=== PATIENT | male | born 1950 | race Caucasian/White ===

== ENCOUNTER 2016-10-12 11:06 | Inpatient (IN) | payer OTHER ==
[~2016-10-12] VITALS: Ht 177.8 cm; Wt 85.2 kg
[~2016-10-12 11:06] MED LIST: ALBUTEROL SULF8.5 GM IH; AMBIEN10 M1 PO; AMBIEN10 MG PO; ATROVENT H200 INHALA IH; AZITHROMYCIN250 MG PO; Aspirin E.C. PO; Bactrim,Septra DS 80 PO; CARTIA XT120 MG PO; CEFTIN500 MG PO; COUMADIN1 MG PO; EYE DROP TEARS15 ML BOTH EYES; FLEXERIL10 MG PO; FLOMAX0.4 M1 PO; FLOMAX0.4 MG PO; INDERAL10 MG PO; INDOMETHACIN50 MG PO; LOVENOX80 MG/0.8 SC; NO HOME MEDICATION; NOT TAKING MEDS; PRED FORTE100 DROP/5 RIGHT EYE; PREDNISONE10 MG PO; PREDNISONE20 MG PO; PREDNISONE50 MG PO; PROAIR HFA8.5 GM IH; PROVENTIL,2.5 MG/3 M IH; PROVENTIL,200 INHALA IH; RISPERDAL1 MG PO; SEROQUEL200 MG PO; SEROQUEL400 MG PO; SEROquel PO; SPIRIVA RESPIMAT4 GM IH; SYMBICORT60 INHALAT IH; Symbicort 160-4.5 mc IH; TAMIFLU75 MG PO; Theo-Dur,Theocron PO; Theragran PO; VALIUM5 MG PO; VANCOMYCIN HCL1 GM IV; XANAX0.25 MG PO; ZITHROMAX250 MG PO; ZOLPIDEM TARTRAT5 MG PO; Zithromax PO; predniSONE PO
[2016-10-12 14:26] VITALS: BP 153/66
[2016-10-12] MEDS ORDERED: ATROVENT 00.5 MG/2.5 IH (15:13)
[2016-10-12] MEDS ORDERED: ZOLPIDEM TARTRA10 MG PO (15:18)
[2016-10-12 16:15] VITALS: BP 154/89
[2016-10-12 18:24] LABS: EOSINOPHIL (%) 1.5 % (0-5); EOSINOPHIL COUNT 0.1 K/uL (0-0.3); HEMATOCRIT 41.6 % (38.0-50.0); IMMATURE GRANULOCYTE (%) 0.3 % (0.0-0.7); INSTRUMENT ABS NEUTROPHIL CT 7.2 K/uL; LYMPHOCYTE COUNT 0.7 K/uL (1.0-2.8); MCH 28.2 PG (29.0-34.0); MCHC 33.2 G/DL (30.0-36.0); MCV 85.1 FL (86-99); MONOCYTE (%) 6.8 % (3-12); MONOCYTE COUNT 0.6 K/uL (0-0.8); NEUTROPHIL (%) 83.2 % (45-76); NEUTROPHIL COUNT 7.2 K/uL (1.8-6.4); RBC DIS.WIDTH-CV 14.5 % (11.8-14.6); RBC DIS.WIDTH-SD 45.2 % (39-53); RED BLOOD COUNT 4.89 M/uL (4.00-5.50)
[2016-10-12 18:35] LABS: CHLORIDE 107 mEq/L (99-109); POTASSIUM 3.9 mEq/L (3.7-5.4); SODIUM 136 mEq/L (136-147)
[2016-10-12 18:38] LABS: GLUCOSE 175 mg/dL (70-99); WHITE BLOOD COUNT 8.6 K/uL (4.1-10.2)
[2016-10-12 18:39] LABS: ANION GAP 10 MEQ/L (2-14)
[2016-10-12 18:40] LABS: TOTAL BILIRUBIN 1.2 mg/dL (0.0-1.0)
[2016-10-12 18:41] LABS: ALKALINE PHOSPHATASE 79 IU/L (3-129); GFR ESTIMATE (CALCULATED) 50 mL/min/
[2016-10-12 18:42] LABS: UREA NITROGEN (BUN) 18 mg/dL (9-23)
[2016-10-12 19:42] LABS: IMM.PLATELET FRACTION 1.9 (1-7); MEAN PLAT.VOLUME 9.5 uM^3 (9.0-12.4); PLATELET COUNT 35 K/uL (156-360)
[2016-10-12 19:43] LABS: PLAT.SUFFICIENCY VERY DECREASED
[2016-10-12 20:49] LABS: METH RESISTANT S AUREUS PCR NEGATIVE (NEGATIVE)
[2016-10-12 20:50] LABS: PROBE CHECK PASS; SPECIMEN PROCESSING CONTROL PASS
[2016-10-12 23:08] VITALS: BP 119/63
[2016-10-13 05:58] LABS: ALKALINE PHOSPHATASE 76 IU/L (3-129); ANION GAP 11 MEQ/L (2-14); CHLORIDE 105 MEQ/L (99-109); GFR ESTIMATE (CALCULATED) > 59 mL/min/; SAMPLE HEMOLYSIS CHECK 0; SAMPLE ICTERIC CHECK 0; SAMPLE LIPEMIA CHECK 0; SODIUM 135 MEQ/L (136-147); TOTAL BILIRUBIN 0.7 MG/DL (0.0-1.0); UREA NITROGEN (BUN) 22 mg/dL (9-23)
[2016-10-13 06:10] LABS: GLUCOSE 288 mg/dL (70-99)
[2016-10-13 06:25] LABS: HEMATOCRIT 41.3 % (38.0-50.0); MCH 28.2 PG (29.0-34.0); MCHC 32.9 G/DL (30.0-36.0); MCV 85.5 FL (86-99); RBC DIS.WIDTH-CV 14.1 % (11.8-14.6); RED BLOOD COUNT 4.83 M/uL (4.00-5.50)
[2016-10-13 06:37] LABS: MEAN PLAT.VOLUME 9.8 uM^3 (9.0-12.4); PLAT.SUFFICIENCY DECREASED
[2016-10-13 06:48] LABS: PLATELET COUNT 30 K/uL (156-360); WHITE BLOOD COUNT 3.3 K/uL (4.1-10.2)
[2016-10-13 07:28] VITALS: BP 129/64
[2016-10-13 18:52] VITALS: BP 132/64
[2016-10-13 23:07] VITALS: BP 151/72
[2016-10-14 07:38] VITALS: BP 124/73
[2016-10-14 16:58] VITALS: BP 139/85
[2016-10-14 23:09] VITALS: BP 165/74
[2016-10-15 08:01] LABS: HEMATOCRIT 36.6 % (38.0-50.0); MCH 28.3 PG (29.0-34.0); MCHC 33.1 G/DL (30.0-36.0); MCV 85.5 FL (86-99); RBC DIS.WIDTH-CV 14.3 % (11.8-14.6); RBC DIS.WIDTH-SD 44.4 % (39-53); RED BLOOD COUNT 4.28 M/uL (4.00-5.50); WHITE BLOOD COUNT 2.9 K/uL (4.1-10.2)
[2016-10-15 08:17] LABS: CHLORIDE 110 mEq/L (99-109); POTASSIUM 4.4 mEq/L (3.7-5.4); SODIUM 137 mEq/L (136-147)
[2016-10-15 08:19] LABS: GLUCOSE 280 mg/dL (70-99)
[2016-10-15 08:21] LABS: ANION GAP 10 MEQ/L (2-14)
[2016-10-15 08:23] LABS: GFR ESTIMATE (CALCULATED) > 59 mL/min/
[2016-10-15 08:24] LABS: UREA NITROGEN (BUN) 23 mg/dL (9-23)
[2016-10-15 08:39] VITALS: BP 158/70
[2016-10-15 09:41] LABS: IMM.PLATELET FRACTION 2.2 (1-7); MEAN PLAT.VOLUME 10.3 uM^3 (9.0-12.4); PLAT.SUFFICIENCY DECREASED; PLATELET COUNT 48 K/uL (156-360)
[2016-10-15 15:50] VITALS: BP 166/73
[2016-10-15 23:44] VITALS: BP 170/78
[2016-10-16] MEDS ORDERED: PREDNISONE20 MG PO (08:19)
== END 2016-10-16 11:18 | disposition home or self-care (01) | DRG 191 ==
LOC: 5EAST 11:06
PROVIDERS: Internal Medicine
DX: J44.1 Chronic obstructive pulmonary disease with (acute) exacerbation (principal); K74.69 Other cirrhosis of liver; D69.59 Other secondary thrombocytopenia; R18.8 Other ascites; R09.02 Hypoxemia; J84.10 Pulmonary fibrosis, unspecified; M10.9 Gout, unspecified; F33.9 Major depressive disorder, recurrent, unspecified; I10 Essential (primary) hypertension; Z86.711 Personal history of pulmonary embolism; Z86.14 Personal history of Methicillin resistant Staphylococcus aureus infection; Z60.2 Problems related to living alone; Z87.891 Personal history of nicotine dependence; Z91.041 Radiographic dye allergy status; Z79.52 Long term (current) use of systemic steroids
CPT/HCPCS: 71020; 80048; 80053; 83605; 85025; 85027; 87040; 87070; 87205; 87641; 94640; 94640 76; 94760; 99202; J0696; J1650; J2930; J7030; J7050; J7512

== ENCOUNTER 2017-08-10 09:47 | Observation (INO) | payer OTHER ==
[~2017-08-10] VITALS: Ht 180.3 cm; Wt 87.6 kg
[~2017-08-10 09:47] MED LIST changes: +ATROVENT 00.5 MG/2.5 IH; +ZOLPIDEM TARTRA10 MG PO
[2017-08-10 09:57] LABS: BASOPHIL (%) 0.4 % (0-1); EOSINOPHIL (%) 3.5 % (0-5); EOSINOPHIL COUNT 0.1 K/uL (0-0.3); HEMOGLOBIN 14.9 G/DL (12.5-16.6); IMMATURE GRANULOCYTE (%) 0.4 % (0.0-0.7); LYMPHOCYTE (%) 27.5 % (15-42); LYMPHOCYTE COUNT 0.6 K/uL (1.0-2.8); MCH 29.8 PG (29.0-34.0); MCHC 34.7 G/DL (30.0-36.0); MONOCYTE (%) 9.6 % (3-12); MONOCYTE COUNT 0.2 K/uL (0-0.8); NEUTROPHIL (%) 58.6 % (45-76); NEUTROPHIL COUNT 1.3 K/uL (1.8-6.4); RBC DIS.WIDTH-CV 13.7 % (11.8-14.6); RBC DIS.WIDTH-SD 43.2 % (39-53); WHITE BLOOD COUNT 2.3 K/uL (4.1-10.2)
[2017-08-10 10:06] LABS: AMYLASE 41 IU/L (1-118); CHLORIDE 115 mEq/L (99-109); POTASSIUM 3.7 mEq/L (3.7-5.4); SODIUM 142 mEq/L (136-147)
[2017-08-10 10:08] LABS: GLUCOSE 155 mg/dL (70-99)
[2017-08-10 10:11] LABS: SERUM ETHYL ALCOHOL < 10 mg/dL
[2017-08-10 10:12] LABS: CREATININE 1.3 mg/dL (0.6-1.3); GFR ESTIMATE (CALCULATED) 59 mL/min/ (58.99-99999)
[2017-08-10 10:13] LABS: UREA NITROGEN (BUN) 16 mg/dL (9-23)
[2017-08-10 10:15] LABS: LIPASE 27 U/L (1.0-51.0)
[2017-08-10 10:57] LABS: PLAT.SUFFICIENCY DECREASED
[2017-08-10 11:09] LABS: IMM.PLATELET FRACTION 2.7 (1-7); PLATELET COUNT 34 K/uL (156-360)
[2017-08-10 12:25] LABS: APPEARANCE CLEAR ((CLEAR)); BILIRUBIN NEGATIVE; BLOOD NEGATIVE; COLOR YELLOW ((YELLOW)); GLUCOSE (STRIP) NEGATIVE; KETONES NEGATIVE; LEUKOCYTES NEGATIVE; NITRITE NEGATIVE; PROTEIN (STRIP) NEGATIVE; SPECIFIC GRAVITY 1.009 (1.000-1.030); UCUL ADDED? NO; UROBILINOGEN 0.2 MG/DL (0.2-1.0)
[2017-08-10 12:38] LABS: AMPHETAMINE NEGATIVE (500 ng/mL); BARBITURATES NEGATIVE (200 ng/mL); BENZODIAZEPINES PRESUMPTIVE POSITIVE (150 ng/mL); BUPRENORPHINE NEGATIVE (10 ng/mL); COCAINE NEGATIVE (150 ng/mL); METHADONE NEGATIVE (200 ng/mL); METHAMPHETAMINE NEGATIVE (500 ng/mL); OPIATES (MORPHINE) NEGATIVE (100 ng/mL); OXYCODONE NEGATIVE (100 ng/mL); PHENCYCLIDINE NEGATIVE (25 ng/mL); PROPOXYPHENE NEGATIVE (300 ng/mL); THC CANNABINOIDS NEGATIVE (50 ng/mL); TRICYCLIC ANTIDEPRESSANTS PRESUMPTIVE POSITIVE (300 ng/mL)
[2017-08-10 13:20] LABS: BENZODIAZEPINES, URINE SCREEN POSITIVE (200 ng/mL)
[2017-08-10 17:17] LABS: HDL CHOLESTEROL 22 MG/DL (Desirable>=40); LDL CHOLESTEROL 65 mg/dL (Desirable<100); NON-HDL CHOLESTEROL 89 mg/dL (Desirable<160); TOTAL CHOLESTEROL 111 mg/dL (Desirable<200); TRIGLYCERIDES 118 MG/DL (Normal: <150)
[2017-08-10 17:19] VITALS: BP 153/79
[2017-08-10 20:43] VITALS: BP 152/75
[2017-08-10 23:38] VITALS: BP 135/59
[2017-08-11 03:55] VITALS: BP 117/55
[2017-08-11 07:52] VITALS: BP 143/71
[2017-08-11 10:33] VITALS: BP 138/75
[2017-08-12 10:43] LABS: HEMOGLOBIN A1c (GLYCOHEMOGLOB) 5.8 % (Below 5.7)
== END 2017-08-11 11:53 | disposition home or self-care (01) ==
LOC: TRA 09:47 → 5WEST 15:41 → EDOF 15:41 → ENRESERV 15:46 → 5WEST 17:11 → ENPENDDIS 08-11 → 5WEST 08-11 11:53
PROVIDERS: Emergency Medicine Emergency Medical Services
DX: R47.1 Dysarthria and anarthria (principal); S00.03XA Contusion of scalp, initial encounter; S60.212A Contusion of left wrist, initial encounter; S80.02XA Contusion of left knee, initial encounter; B19.20 Unspecified viral hepatitis C without hepatic coma; D69.6 Thrombocytopenia, unspecified; F20.9 Schizophrenia, unspecified; K74.60 Unspecified cirrhosis of liver; J44.9 Chronic obstructive pulmonary disease, unspecified; G47.00 Insomnia, unspecified; F41.9 Anxiety disorder, unspecified; M10.9 Gout, unspecified; R18.8 Other ascites; Z86.14 Personal history of Methicillin resistant Staphylococcus aureus infection; Z79.811 Long term (current) use of aromatase inhibitors; Z87.891 Personal history of nicotine dependence; Z82.49 Family history of ischemic heart disease and other diseases of the circulatory system; Z82.0 Family history of epilepsy and other diseases of the nervous system; Z88.5 Allergy status to narcotic agent; Z88.1 Allergy status to other antibiotic agents; W19.XXXA Unspecified fall, initial encounter
CPT/HCPCS: 70450; 70551; 73560; 80048; 80061; 81003; 82140; 82150; 83036; 83690; 84999; 85025; 86850; 86860; 86870; 86880; 86900; 86901; 86905; 86920; 93005; 94640; 94640 76; 94760; 99202; G0378; G0480

== ENCOUNTER 2017-10-11 09:58 | Inpatient (IN) | payer OTHER ==
[~2017-10-11] VITALS: Ht 177.8 cm; Wt 90.0 kg
[2017-10-11 10:30] LABS: HEMATOCRIT 43.5 % (38.0-50.0); MCH 29.7 PG (29.0-34.0); MCHC 34.5 G/DL (30.0-36.0); MCV 86.1 FL (86-99); RBC DIS.WIDTH-CV 14.2 % (11.8-14.6); RBC DIS.WIDTH-SD 44.7 % (39-53); RED BLOOD COUNT 5.05 M/uL (4.00-5.50); WHITE BLOOD COUNT 5.7 K/uL (4.1-10.2)
[2017-10-11 10:36] LABS: INTER. NORMALIZED RATIO 1.3
[2017-10-11 10:38] LABS: PTT 35.1 SEC (25-37)
[2017-10-11 10:39] LABS: ALBUMIN 3.3 g/dL (3.2-4.8); CHLORIDE 108 mEq/L (99-109); SODIUM 138 mEq/L (136-147)
[2017-10-11 10:42] LABS: GLUCOSE 116 mg/dL (70-99); TOTAL PROTEIN 5.5 g/dL (6.4-8.3)
[2017-10-11 10:44] LABS: TOTAL BILIRUBIN 2.3 mg/dL (0.0-1.0)
[2017-10-11 10:45] LABS: ALKALINE PHOSPHATASE 75 IU/L (3-129); CREATININE 1.5 mg/dL (0.6-1.3); GFR ESTIMATE (CALCULATED) 50 mL/min/ (58.99-99999)
[2017-10-11 10:46] LABS: UREA NITROGEN (BUN) 30 mg/dL (9-23)
[2017-10-11 10:47] LABS: AST (GOT) 9 IU/L (2-34)
[2017-10-11 10:48] LABS: ALT (GPT) 8 IU/L (3-49)
[2017-10-11 10:51] LABS: TROP-I INTERPRETATION NEGATIVE; TROPONIN-I < 0.01 ng/mL (0.0-0.30)
[2017-10-11 11:15] LABS: ABS NEUTROPHIL COUNT 3.7; BAND NEUTROPHILS 15.6 % (0-8.0); BASOPHILS 0.9 %; BURR CELLS 1+; EOSINOPHIL ABS CT 0.1; EOSINOPHILS 2.6 % (0-5.0); IMM.PLATELET FRACTION 2.5 (1-7); LYMPHOCYTES 13.9 % (15.0-45.0); METAMYELOCYTES 1.7 %; MONOCYTES 14.8 % (0-9.0); MYELOCYTES 0.9 %; OVALOCYTES 1+; PLAT.SUFFICIENCY DECREASED; PLATELET COUNT 36 K/uL (156-360); SEG.NEUTROPHILS 49.6 % (46.0-76.0)
[2017-10-11 18:47] VITALS: BP 120/59
[2017-10-11 19:15] VITALS: BP 120/59
[2017-10-11 23:37] VITALS: BP 118/58
[2017-10-12 03:10] VITALS: BP 109/55
[2017-10-12 06:38] LABS: HEMATOCRIT 39.6 % (38.0-50.0); MCH 29.2 PG (29.0-34.0); MCHC 32.8 G/DL (30.0-36.0); RBC DIS.WIDTH-CV 14.4 % (11.8-14.6); RBC DIS.WIDTH-SD 46.7 % (39-53); RED BLOOD COUNT 4.45 M/uL (4.00-5.50); WHITE BLOOD COUNT 1.8 K/uL (4.1-10.2)
[2017-10-12 06:56] LABS: IMM.PLATELET FRACTION 2.5 (1-7); PLAT.SUFFICIENCY VERY DECREASED; PLATELET COUNT 31 K/uL (156-360)
[2017-10-12 07:58] VITALS: BP 129/83
[2017-10-12 11:06] LABS: ALBUMIN 2.6 G/DL (3.2-4.8); ALKALINE PHOSPHATASE 52 IU/L (3-129); ALT (GPT) 6 IU/L (3-49); AST (GOT) 7 IU/L (2-34); CHLORIDE 111 MEQ/L (99-109); CREATININE 1.4 MG/DL (0.6-1.3); DIRECT BILIRUBIN 0.5 mg/dL (0.0-0.3); GFR ESTIMATE (CALCULATED) 54 mL/min/ (58.99-99999); GLUCOSE 249 mg/dL (70-99); POTASSIUM 4.1 MEQ/L (3.7-5.4); SODIUM 142 MEQ/L (136-147); TOTAL BILIRUBIN 0.9 MG/DL (0.0-1.0); TOTAL PROTEIN 4.4 G/DL (6.4-8.3); UREA NITROGEN (BUN) 29 mg/dL (9-23)
[2017-10-12 12:37] VITALS: BP 113/53
[2017-10-12 15:57] VITALS: BP 127/58
[2017-10-12 16:43] LABS: APPEARANCE CLEAR ((CLEAR)); BILIRUBIN NEGATIVE; BLOOD NEGATIVE; COLOR YELLOW ((YELLOW)); GLUCOSE (STRIP) >=500; KETONES NEGATIVE; LEUKOCYTES NEGATIVE; NITRITE NEGATIVE; PROTEIN (STRIP) NEGATIVE; SPECIFIC GRAVITY 1.006 (1.000-1.030); UCUL ADDED? NO; UROBILINOGEN 0.2 MG/DL (0.2-1.0)
[2017-10-12 19:49] VITALS: BP 128/60
[2017-10-12 23:32] VITALS: BP 133/63
[2017-10-13 03:30] VITALS: BP 133/63
[2017-10-13 05:48] LABS: HEMATOCRIT 36.2 % (38.0-50.0); HEMOGLOBIN 12.3 G/DL (12.5-16.6); MCH 29.2 PG (29.0-34.0); RBC DIS.WIDTH-CV 14.4 % (11.8-14.6); RBC DIS.WIDTH-SD 45.1 % (39-53); RED BLOOD COUNT 4.21 M/uL (4.00-5.50); WHITE BLOOD COUNT 2.8 K/uL (4.1-10.2)
[2017-10-13 06:36] LABS: PLAT.SUFFICIENCY DECREASED
[2017-10-13 06:38] LABS: IMM.PLATELET FRACTION 2.1 (1-7)
[2017-10-13 06:52] LABS: PLATELET COUNT 44 K/uL (156-360)
[2017-10-13 07:04] LABS: ALBUMIN 2.7 G/DL (3.2-4.8); ALKALINE PHOSPHATASE 53 IU/L (3-129); ALT (GPT) 6 IU/L (3-49); AST (GOT) 11 IU/L (2-34); CHLORIDE 111 MEQ/L (99-109); CREATININE 1.3 MG/DL (0.6-1.3); GFR ESTIMATE (CALCULATED) 59 mL/min/ (58.99-99999); GLUCOSE 186 mg/dL (70-99); POTASSIUM 4.3 MEQ/L (3.7-5.4); SODIUM 139 MEQ/L (136-147); TOTAL BILIRUBIN 0.6 MG/DL (0.0-1.0); TOTAL PROTEIN 4.6 G/DL (6.4-8.3); UREA NITROGEN (BUN) 35 mg/dL (9-23)
[2017-10-13 07:26] VITALS: BP 121/88
[2017-10-13 12:02] VITALS: BP 134/61
[2017-10-13 15:56] VITALS: BP 151/77
[2017-10-13 20:27] VITALS: BP 163/68
[2017-10-13 23:52] VITALS: BP 142/69
[2017-10-14 03:45] VITALS: BP 160/74
[2017-10-14 06:18] LABS: HEMATOCRIT 36.4 % (38.0-50.0); HEMOGLOBIN 12.4 G/DL (12.5-16.6); MCH 29.2 PG (29.0-34.0); MCHC 34.1 G/DL (30.0-36.0); MCV 85.6 FL (86-99); PLATELET COUNT 55 K/uL (156-360); RBC DIS.WIDTH-CV 14.4 % (11.8-14.6); RED BLOOD COUNT 4.25 M/uL (4.00-5.50); WHITE BLOOD COUNT 3.7 K/uL (4.1-10.2)
[2017-10-14 06:35] LABS: ALBUMIN 2.8 G/DL (3.2-4.8); ALKALINE PHOSPHATASE 47 IU/L (3-129); ALT (GPT) 7 IU/L (3-49); AST (GOT) 7 IU/L (2-34); CHLORIDE 109 MEQ/L (99-109); CREATININE 1.3 MG/DL (0.6-1.3); GFR ESTIMATE (CALCULATED) 59 mL/min/ (58.99-99999); GLUCOSE 220 mg/dL (70-99); SODIUM 139 MEQ/L (136-147); TOTAL BILIRUBIN 0.6 MG/DL (0.0-1.0); TOTAL PROTEIN 4.6 G/DL (6.4-8.3); UREA NITROGEN (BUN) 38 mg/dL (9-23)
[2017-10-14 08:29] VITALS: BP 136/80
[2017-10-14 12:11] VITALS: BP 128/77
[2017-10-14 15:40] VITALS: BP 182/80
[2017-10-14 20:10] VITALS: BP 150/82
[2017-10-14 23:35] VITALS: BP 146/68
[2017-10-15 04:25] VITALS: BP 145/68
[2017-10-15 07:51] VITALS: BP 140/72
[2017-10-15 11:23] VITALS: BP 140/72
[2017-10-15 16:20] VITALS: BP 130/70
[2017-10-15 20:26] VITALS: BP 140/72
[2017-10-15 23:27] VITALS: BP 194/79
[2017-10-16] VITALS (7 sets, daily range): BP systolic 128–157; BP diastolic 60–74
[2017-10-16 07:05] LABS: CREATININE 1.1 MG/DL (0.6-1.3); GFR ESTIMATE (CALCULATED) > 59 mL/min/ (58.99-99999)
[2017-10-17 04:43] VITALS: BP 159/81
[2017-10-17 06:03] LABS: HEMATOCRIT 42.3 % (38.0-50.0); HEMOGLOBIN 14.1 G/DL (12.5-16.6); MCH 28.7 PG (29.0-34.0); MCHC 33.3 G/DL (30.0-36.0); PLATELET COUNT 65 K/uL (156-360); RBC DIS.WIDTH-CV 14.1 % (11.8-14.6); RBC DIS.WIDTH-SD 44.4 % (39-53); RED BLOOD COUNT 4.92 M/uL (4.00-5.50); WHITE BLOOD COUNT 5.2 K/uL (4.1-10.2)
[2017-10-17 06:24] LABS: ALBUMIN 3.2 G/DL (3.2-4.8); ALKALINE PHOSPHATASE 50 IU/L (3-129); CHLORIDE 104 MEQ/L (99-109); GFR ESTIMATE (CALCULATED) > 59 mL/min/ (58.99-99999); GLUCOSE 198 mg/dL (70-99); SODIUM 139 MEQ/L (136-147); TOTAL BILIRUBIN 0.7 MG/DL (0.0-1.0); TOTAL PROTEIN 5.2 G/DL (6.4-8.3); UREA NITROGEN (BUN) 35 mg/dL (9-23)
[2017-10-17 06:27] LABS: ALT (GPT) 21 IU/L (3-49); AST (GOT) 14 IU/L (2-34)
[2017-10-17 07:47] VITALS: BP 150/80
[2017-10-17 11:20] VITALS: BP 130/72
[2017-10-17 16:00] VITALS: BP 150/82
[2017-10-17] MEDS ORDERED: AUGMENTIN875 MG PO (16:15)
[2017-10-17] MEDS ORDERED: ZYVOX600 MG PO (16:15)
[2017-10-17] MEDS ORDERED: PREDNISONE20 MG PO (16:17)
== END 2017-10-17 18:13 | disposition home or self-care (01) | DRG 178 ==
LOC: EME 09:58 → 3EAST 14:35 → EDOF 14:35 → ENRESERV 14:37 → 3EAST 18:22
PROVIDERS: Emergency Medicine; Family Medicine; Internal Medicine
DX: J15.212 Pneumonia due to Methicillin resistant Staphylococcus aureus (principal); J14 Pneumonia due to Hemophilus influenzae; J44.0 Chronic obstructive pulmonary disease with (acute) lower respiratory infection; J44.1 Chronic obstructive pulmonary disease with (acute) exacerbation; D69.59 Other secondary thrombocytopenia; D70.2 Other drug-induced agranulocytosis; T36.95XA Adverse effect of unspecified systemic antibiotic, initial encounter; K70.9 Alcoholic liver disease, unspecified; K70.30 Alcoholic cirrhosis of liver without ascites; J84.10 Pulmonary fibrosis, unspecified; I12.9 Hypertensive chronic kidney disease with stage 1 through stage 4 chronic kidney disease, or unspecified chronic kidney disease; N18.3 Chronic kidney disease, stage 3 (moderate); K76.6 Portal hypertension; R16.1 Splenomegaly, not elsewhere classified; B18.2 Chronic viral hepatitis C; F10.21 Alcohol dependence, in remission; I86.8 Varicose veins of other specified sites; M10.9 Gout, unspecified; I25.2 Old myocardial infarction; F25.0 Schizoaffective disorder, bipolar type; F32.9 Major depressive disorder, single episode, unspecified; M25.551 Pain in right hip; Z91.81 History of falling; Z86.14 Personal history of Methicillin resistant Staphylococcus aureus infection; Z87.891 Personal history of nicotine dependence; Z95.1 Presence of aortocoronary bypass graft
CPT/HCPCS: 71045; 71046; 71250; 80048; 80053; 80076; 80202; 81003; 82140; 82565; 83605; 83735; 83880; 84484; 85025; 85027; 85610; 85730; 87040; 87070; 87077; 87147; 87181; 87185; 87186; 87205; 87449; 87801; 93005; 94010; 94640; 94640 76; 94667; 94799; 99202; 99281; 99285; J0456; J0692; J0696; J2930; J3370; J7030; J7512

== ENCOUNTER → 2017-12-02 | Emergency (ER) | payer OTHER ==
[~2017-12-02] VITALS: Ht 177.8 cm; Wt 82.0 kg
[~2017-12-02] MED LIST changes: +AUGMENTIN875 MG PO; +DOXYCYCLINE MO100 MG PO; +NIZORAL 2% CREA15 GM TP; +ZYVOX600 MG PO
[2017-12-02 18:37] LABS: HEMATOCRIT 44.4 % (38.0-50.0); HEMOGLOBIN 15.4 G/DL (12.5-16.6); MCH 29.3 PG (29.0-34.0); MCHC 34.7 G/DL (30.0-36.0); MCV 84.6 FL (86-99); PLATELET COUNT 53 K/uL (156-360); RBC DIS.WIDTH-CV 15.6 % (11.8-14.6); RBC DIS.WIDTH-SD 47.4 % (39-53); RED BLOOD COUNT 5.25 M/uL (4.00-5.50); WHITE BLOOD COUNT 10.6 K/uL (4.1-10.2)
[2017-12-02 19:09] LABS: CHLORIDE 102 MEQ/L (99-109); CREATININE 1.4 MG/DL (0.6-1.3); GFR ESTIMATE (CALCULATED) 54 mL/min/ (58.99-99999); GLUCOSE 190 mg/dL (70-99); POTASSIUM 3.7 MEQ/L (3.7-5.4); SODIUM 137 MEQ/L (136-147); UREA NITROGEN (BUN) 24 mg/dL (9-23)
[2017-12-02 21:47] VITALS: BP 130/83
== END | disposition home or self-care (01) ==
LOC: EME 17:11
PROVIDERS: Physician Assistant
PROC: 0H97XZZ Drainage of Abdomen Skin, External Approach (ICD-10-PCS; principal; 2017-12-02)
DX: L02.214 Cutaneous abscess of groin (principal); B35.6 Tinea cruris; Z86.14 Personal history of Methicillin resistant Staphylococcus aureus infection; J44.9 Chronic obstructive pulmonary disease, unspecified; I25.2 Old myocardial infarction; N18.3 Chronic kidney disease, stage 3 (moderate); Z95.1 Presence of aortocoronary bypass graft; Z87.891 Personal history of nicotine dependence
CPT/HCPCS: 80048; 85027; 99281; 99284